=== PATIENT | male | born 1995 | race Two or more races ===

== ENCOUNTER 2021-12-16 20:45 | Emergency (ER) | payer SELFPAY ==
[2021-12-16] MEDS ORDERED: Sodium Chloride 0.9% 10 ML Syringe FLUSH PRN (21:24)
[2021-12-16] MEDS ORDERED: Sodium Chloride 0.9% 1,000 ML IV ONE ×2 (21:24→22:27)
[2021-12-16] MEDS ORDERED: LORazepam 2 MG/ML SDV IVPUSH ONE (21:24)
== END 2021-12-17 00:13 | disposition home or self-care (01) ==
LOC: FB.ED 20:45
DX: R56.9 Unspecified convulsions (principal); F41.9 Anxiety disorder, unspecified; Z72.0 Tobacco use
CPT/HCPCS: 36415; 70450; 80053; 80307; 81001; 83735; 85025; 93005; 93010; 96374; 99283; 99285-25; J2060; J3490; J7030